=== PATIENT | female | born 1990 | race Caucasian/White ===

== ENCOUNTER 2020-07-12 18:33 | Emergency (ER) | payer SELFPAY ==
[~2020-07-12] VITALS: Ht 165 cm; Wt 77.0 kg
[2020-07-12 18:46] VITALS: BP 132/85
--- NOTE | 2020-07-12 19:02 | ED GU-Female ---
General Chief Complaint: - Urinary Stated Complaint: ABD PAIN Nursing Triage Note: Patient reports brown vaginal discharge and lower abdominal pain and pain when she wipes for 3 days. Nursing Sepsis Screen: No Definite Risk Source: patient History of Present Illness Date Seen by Provider: Jul 12, 2020 Time Seen by Provider: 18:50 Initial Comments 30 y/o presents w c/o vaginal irritation and itching for a few days. denies abdominal or pelvic pain, denies vaginal DC. No dysuria or hematuria Allergies and Home Medications Patient Home Medication List Home Medication List Reviewed: Yes Review of Systems Review of Systems Constitutional: no symptoms reported; No chills, No fever, No malaise, No weakness Genitourinary: see HPI, burning; denies discharge, denies dysuria, denies frequency, denies flank pain, denies hematuria; pain (genital area) Musculoskeletal: No back pain, No muscle pain Skin: change in color (redness genitals); No lesions, No lumps; pruritus; No rash Past Lrrjiqa-Zpufel-Qnjvpm Hx Past Med/Social Hx: Reviewed Nursing Past Med/Soc Hx Patient Social History Recent Foreign Travel: No Contact w/Someone Who Travel: No Recent Infectious Disease Expo: No Physical Exam Vital Signs Vital Signs - First Documented 07/12/20 18:46 Temp 36.8 Pulse 94 Resp 16 B/P (MAP) 132/85 (101) Pulse Ox 97 O2 Delivery Room Air Capillary Refill : Less Than 3 Seconds Height, Weight, BMI Height: '" Weight: lbs. oz. kg; 28.00 BMI Method: General Appearance: WD/WN, no apparent distress Gastrointestinal: non tender, soft, no organomegaly Genital/Rectal: No blood at urethral meatus; other (erythematous introitus and vaginal mucosa without discharge. Normal cervix w IUD string. No CMT) Progress/Results/Core Measures Suspected Sepsis Recent Fever Within 48 Hours: No Infection Criteria Present: Suspected New Infection New/Unexplained Altered Menta: No Sepsis Screen: No Definite Risk SIRS Temperature: Pulse: 94 Respiratory Rate: 16 Blood Pressure 132 /85 Mean: 101 Results/Orders Vital Signs/I&O 07/12/20 18:46 Temp 36.8 Pulse 94 Resp 16 B/P (MAP) 132/85 (101) Pulse Ox 97 O2 Delivery Room Air Capillary Refill : Less Than 3 Seconds Blood Pressure Mean: 101 Departure Impression Primary Impression: Vaginitis Qualified Codes: N76.0 - Acute vaginitis Disposition: 01 HOME, SELF-CARE Condition: Stable Departure-Patient Inst. Decision time for Depature: 19:01 Referrals: [facility]MICHAEL LOPEZ,LOCAL PHYSICIAN (PCP) Primary Care Physician Patient Instructions: Vaginitis Add. Discharge Instructions: Establish a PCP for follow up care in 1 week. Use an over the counter vaginal yeast cream for 7 days. You should get a call regarding your lab testing in a few days All discharge instructions reviewed with patient and/or family. Voiced understanding. HORACE DELATORRE DO Jul 12, 2020 19:02
== END 2020-07-12 19:08 | disposition home or self-care (01) ==
LOC: ER FS 18:34
DX: N76.0 Acute vaginitis (principal)
CPT/HCPCS: 36415; 87210; 87491; 87591; 99282

== ENCOUNTER 2021-06-12 06:12 | Emergency (ER) | payer SELFPAY ==
[~2021-06-12] VITALS: Ht 164 cm; Wt 56.9 kg
[2021-06-12] MEDS ORDERED: NS IV 1000 ML 1,000 ML IV STA (06:24)
[2021-06-12] MEDS ORDERED: KETOROLAC 30 MG/ML VIAL IVP STA (06:24)
[2021-06-12] MEDS ORDERED: ONDANSETRON 4 MG/2 ML (SDV) Z0FRAN IVP STA (06:33)
--- NOTE | 2021-06-12 06:39 | ED GU-Female ---
General Chief Complaint: - Reproductive Stated Complaint: LT FLANK PAIN Source: patient History of Present Illness Date Seen by Provider: Jun 12, 2021 Time Seen by Provider: 06:20 Initial Comments 31-year-old female presenting with complaints of left flank pain and stating that she has a UTI that went into her kidney and needs antibiotics. She reports that she is taken 3 doses of Bactrim since yesterday. She had some leftover antibiotics that she took to try and start treating infection. She felt like she had a UTI 3 to 4 days ago and now she has pain going into her kidney. She states that she has had this several times in the past and insists that it is infection that is going to her kidney. She insists that she just needs antibiotics and help with the pain. She has had sweating at home and nausea. She reports some emesis. She has pain all on the left flank. She denies any vaginal discharge or bleeding. She states she has an IUD in place for control. She follows with nurse practitioner Luly through the [facility]. Timing/Duration: getting worse (over the last 3-4 days) Severity/Quality: severe, burning, sharp Location: left flank Radiation: left flank Prior Genitourinary Problems: similar symptoms Sexual [place] History: less than 2 months ago, single partner Associated Symptoms: abdominal pain (left flank pain), diaphoresis, dysuria, fever/chills (subjective), lower back pain (left flank), nausea/vomiting; No swelling, No syncope; urinary frequency Allergies and Home Medications Allergies Coded Allergies: Penicillins (Verified Allergy, Unknown, 06/12/21) clarithromycin (Verified Allergy, Unknown, 06/12/21) Patient Home Medication List Home Medication List Reviewed: Yes Oxycodone HCl/Acetaminophen (Oxycodone-Acetaminophen 5-325) 1 Each Tablet, 1 EACH PO Q4H PRN for PAIN-SEVERE (8-10) Prescribed by: FREDY TRAN on 06/12/21821 Sulfamethoxazole/Trimethoprim (Bactrim Ds Tablet) 1 Each Tablet, 1 EACH PO BID Prescribed by: FREDY TRAN on 06/12/21820 Tamsulosin HCl (Flomax) 0.4 Mg Cap, 0.4 MG PO DAILY Prescribed by: FREDY TRAN on 06/12/21820 Review of Systems Review of Systems Constitutional: chills, diaphoresis, fever EENTM: no symptoms reported Respiratory: no symptoms reported Cardiovascular: no symptoms reported Gastrointestinal: see HPI Genitourinary: see HPI; denies discharge Musculoskeletal: no symptoms reported Skin: no symptoms reported Psychiatric/Neurological: No Symptoms Reported Past Eijdimg-Nprckj-Rfnhvx Hx Seasonal Allergies Seasonal Allergies: No Past Medical History Surgery/Hospitalization HX: Recurrent UTI and Kidney infections Surgeries: No Respiratory: No Cardiac: No Neurological: No Genitourinary: No Gastrointestinal: No Musculoskeletal: No Endocrine: No HEENT: No Cancer: No Psychosocial: No Integumentary: No Physical Exam Vital Signs Vital Signs - First Documented 06/12/21 06:16 Temp 36.9 Pulse 60 Resp 16 B/P (MAP) 162/100 (120) Pulse Ox 100 O2 Delivery Room Air Capillary Refill : Height, Weight, BMI Height: '" Weight: lbs. oz. kg; 28.00 BMI Method: General Appearance: moderate distress, other (pt bent over holding her stomach and periodically moaning) HEENT: PERRL/EOMI, pharynx normal Neck: non-tender, full range of motion, supple, normal inspection Cardiovascular: normal peripheral pulses, tachycardia Respiratory: chest non-tender, lungs clear, normal breath sounds Gastrointestinal: normal bowel sounds, soft, no pulsatile mass; No guarding, No rebound; tenderness (left flank to LLQ) Rectal: deferred Back: CVA tenderness (L) Extremities: normal range of motion, non-tender, normal capillary refill Neurologic/Psychiatric: alert, oriented x 3 Skin: normal color, diaphoresis Progress/Results/Core Measures Suspected Sepsis SIRS Temperature: Pulse: Respiratory Rate: Laboratory Tests 06/12/21 06:33: White Blood Count 6.5 Blood Pressure / Mean: Laboratory Tests 06/12/21 06:33: Creatinine 1.02, Platelet Count 255, Total Bilirubin 0.3 Results/Orders Lab Results Laboratory Tests Test 06/12/21 06:25 06/12/21 06:33 Range/Units Urine Color ORANGE Urine Clarity TURBID Urine pH 6.5 5-9 Urine Specific [place] 1.020 1.016-1.022 Urine Protein 2+ H NEGATIVE Urine Glucose (UA) TRACE H NEGATIVE Urine Ketones TRACE H NEGATIVE Urine Nitrite POSITIVE H NEGATIVE Urine Bilirubin 1+ H NEGATIVE Urine Urobilinogen >=8.0 < = 1.0 MG/DL Urine Leukocyte Esterase TRACE H NEGATIVE Urine RBC (Auto) TRACE-I H NEGATIVE Urine RBC 0-2 /HPF Urine WBC 0-2 /HPF Urine Squamous Epithelial Cells 10-25 H /HPF Urine Crystals PRESENT H /LPF Urine Amorphous Sediment MOD MARILYN PHOSPHATE H /LPF Urine Bacteria MODERATE H /HPF Urine Casts NONE /LPF Urine Mucus MODERATE H /LPF Urine Other PYRIDIUM TREATMENT /HPF Urine Culture Indicated YES Urine Opiates Screen NEGATIVE NEGATIVE Urine Oxycodone Screen NEGATIVE NEGATIVE Urine Methadone Screen NEGATIVE NEGATIVE Urine Propoxyphene Screen NEGATIVE NEGATIVE Urine Barbiturates Screen NEGATIVE NEGATIVE Ur Tricyclic Antidepressants Screen NEGATIVE NEGATIVE Urine Phencyclidine Screen NEGATIVE NEGATIVE Urine Amphetamines Screen POSITIVE H NEGATIVE Urine Methamphetamines Screen POSITIVE H NEGATIVE Urine Benzodiazepines Screen NEGATIVE NEGATIVE Urine Cocaine Screen NEGATIVE NEGATIVE Urine Cannabinoids Screen POSITIVE H NEGATIVE White Blood Count 6.5 4.3-11.0 10^3/uL Red Blood Count 5.21 H 3.80-5.11 10^6/uL Hemoglobin 13.6 11.5-16.0 g/dL Hematocrit 43 35-52 % Mean Corpuscular Volume 82 80-99 fL Mean Corpuscular Hemoglobin 26 25-34 pg Mean Corpuscular Hemoglobin Concent 32 32-36 g/dL Red Cell Distribution Width 13.3 10.0-14.5 % Platelet Count 255 130-400 10^3/uL Mean Platelet Volume 10.3 9.0-12.2 fL Immature Granulocyte % (Auto) 0 % Neutrophils (%) (Auto) 53 42-75 % Lymphocytes (%) (Auto) 33 12-44 % Monocytes (%) (Auto) 8 0-12 % Eosinophils (%) (Auto) 5 0-10 % Basophils (%) (Auto) 0 0-10 % Neutrophils # (Auto) 3.5 1.8-7.8 X 10^3 Lymphocytes # (Auto) 2.2 1.0-4.0 X 10^3 Monocytes # (Auto) 0.5 0.0-1.0 X 10^3 Eosinophils # (Auto) 0.3 0.0-0.3 10^3/uL Basophils # (Auto) 0.0 0.0-0.1 10^3/uL Immature Granulocyte # (Auto) 0.0 0.0-0.1 10^3/uL Sodium Level 138 135-145 MMOL/L Potassium Level 4.1 3.6-5.0 MMOL/L Chloride Level 103 98-107 MMOL/L Carbon Dioxide Level 25 21-32 MMOL/L Anion Gap 10 5-14 MMOL/L Blood Urea Nitrogen 14 7-18 MG/DL Creatinine 1.02 0.60-1.30 MG/DL Estimat Glomerular Filtration Rate 64 BUN/Creatinine Ratio 14 Glucose Level 157 H 70-105 MG/DL Calcium Level 9.0 8.5-10.1 MG/DL Corrected Calcium 8.7 8.5-10.1 MG/DL Total Bilirubin 0.3 0.1-1.0 MG/DL Aspartate Amino Transf (AST/SGOT) 21 5-34 U/L Alanine Aminotransferase (ALT/SGPT) 20 0-55 U/L Alkaline Phosphatase 93 40-136 U/L Total Protein 6.9 6.4-8.2 GM/DL Albumin 4.4 3.2-4.5 GM/DL Lipase 27 8-78 U/L My Orders Orders - FREDY TRAN MD Ua Culture If Indicated (06/12/21 06:23) Drug Screen Stat (Urine) (06/12/21 06:23) Urine Bedside (06/12/21 06:23) Comprehensive Metabolic Panel (06/12/21 06:24) Lipase (06/12/21 06:24) Ed Iv/Invasive Line Start (06/12/21 06:24) Cbc With Automated Diff (06/12/21 06:24) Ns Iv 1000 Ml (Sodium Chloride 0.9%) (06/12/21 06:24) Ketorolac Injection (Toradol Injection) (06/12/21 06:24) Ondansetron Injection (Zofran Injectio (06/12/21 06:33) Fentanyl Inj (Sublimaze Injection) (06/12/21 06:46) Ct Abdomen/Pelvis Wo (06/12/21 07:05) Urine Culture (06/12/21 06:25) Tamsulosin Capsule (Flomax Capsule) (06/12/21 08:08) Fentanyl Inj (Sublimaze Injection) (06/12/21 08:08) Ceftriaxone (Rocephin) (06/12/21 08:08) Strain Urine (06/12/21 08:08) Vital Signs/I&O 06/12/21 06/12/21 06:16 08:38 Temp 36.9 Pulse 60 77 Resp 16 19 B/P (MAP) 162/100 (120) 119/64 Pulse Ox 100 98 O2 Delivery Room Air Room Air Capillary Refill : Progress Note #1: Progress Note Pt states repeatedly that she has a kidney infection and that she just needs an antibiotic. When reviewing plan to obtain labs in addition to urine and that I would like to perform a CT scan for her complaint of severe pain, she refused the CT scan. She was insisting that she just needs antibiotics because she knows what it is. She has taken 3 doses of left over Bactrim DS she had at home from prior infections that she did not finish the course of medicine. She was willing to get blood drawn and do IV for fluids, pain meds and nausea meds. Order IVF 1 L NS, Zofran 4 mg IV for nausea, Toradol 30 mg IV for pain. Pt denies hx of kidney stones and again insists this is kidney infection and that she does not need CT or imaging. If pain not improving then may need Fentanyl or narcotic for pain control. Differential diagnosis includes pyelonephritis, UTI, kidney stones, diverticulitis, ovarian cyst Progress Note #2: Time: 06:46 Progress Note Significant other stepped out of the room and states she was still in severe pain and was wanting something different for pain as the Toradol was not helping. Will give Fentanyl 50 mcg IV. Progress Note #3: Progress Note Labs show no elevation of WBC count. UA with signs of infection and azo complicating test results. CT scan does show 3.8 mm kidney stone at Left UVJ. Will review results and see if can do antibiotics and treat pain. Progress Note #4: Time: 07:54 Progress Note Reviewed results with patient and that she has slight findings for UTI but primarily she has pain and issues with kidney stone 3.8 mm at left UVJ. Pain down to 5 or 6 out of 10 with treatment in ED. Will give Rocephin 1 gm IV as she reports she can tolerate cephalosporins and does not think she really is allergic to pcn. She was a child and got dry mouth with pcn so family would not allow her to take it. Flomax for dilating and relaxing ureter. Continue Bactrim DS at discharge since she has had that already with 3 doses tours captain. She states she has severe itching with hydrocodone but was willing to take Oxycodone or percocet for pain. Counseled on follow up and return precautions. Give info for Dr. Harley with urology if not improving Diagnostic Imaging Diagonstic Imaging: CT Plain Films/CT/US/NM/MRI: abdomen, pelvis Comments NAME: JN [facility] REC#: [id number] PT STATUS: REG ER : 1990 PHYSICIAN: FREDY TRAN MD ADMIT DATE: 06/12/21/ER FS Draft Date of Exam:06/12/21 CT ABDOMEN/PELVIS WO PROCEDURE: CT abdomen and pelvis without contrast. TECHNIQUE: Multiple contiguous axial images were obtained through the abdomen and pelvis without the use of intravenous contrast. Auto Exposure Controls were utilized during the CT exam to meet ALARA standards for radiation dose reduction. INDICATION: Left flank pain There are no prior studies available for comparison. There is no evidence for nephrolithiasis. However the left ureter and left renal pelvis do seem dilated and the images through the low pelvis revealed there is a small 3.8 mm calculus near the ureterovesical junction on the left. I suspect that this calculus is producing partial obstruction of the left collecting system. The appendix was not well-visualized but there are no indirect signs of acute appendicitis. There is no pelvic mass or free fluid collection noted. There is an IUD within the uterus and the IUD seems to be in good position. The liver, spleen, pancreas, adrenals, gallbladder, aorta and inferior vena cava are unremarkable for an acute abnormality. The stomach is filled with fluid of particulate matter and perhaps some ingested medication. The lung bases are clear. The bone windows show no evidence for a fracture or for a destructive lesion. IMPRESSION: 1. There is partial obstruction of the left collecting system due to a 3.8 mm calculus at the ureterovesical junction. 2. There is no acute abnormality of the abdomen or pelvis noted otherwise. 3. There is an IUD within the uterus and the IUD seems to be in good position. Dictated on workstation # [id number] Dict: 06/12/21 0736 Trans: 06/12/21 0743 [facility] [id number] Interpreted by: DANYA LÓPEZ MD Electronically signed by: Reviewed: Reviewed by Me Departure Impression Primary Impression: Renal colic on left side Additional Impressions: Left flank pain Acute cystitis without hematuria Methamphetamine abuse Disposition: 01 HOME, SELF-CARE Condition: Stable Departure-Patient Inst. Decision time for Depature: 08:14 Referrals: NO,LOCAL PHYSICIAN (PCP) Primary Care Physician VIKRAM HARLEY MD [facility] [place] Instructions: Flank Pain ED, How to Strain Your Urine, Kidney Stone Diet, Kidney Stone, Adult ED, Methamphetamine, Urinary Tract Infection, Adult ED Add. Discharge Instructions: Stay well hydrated and drink plenty of water and electrolyte drinks. Avoid carbonated drinks or caffeinated drinks as they can dehydrate you and contribute to infection and kidney stones. Take the full course of antibiotics to treat for UTI. Use the Flomax (Tamsulosin) to help the ureter relax and allow the kidney stone to pass easier. Use the Oxycodone/Acetaminophen (Percocet) for severe pain. If not improving you could check with Dr. Harley with Urology at [place] If having worsening pain despite medicine, uncontrolled vomiting, fever over 101 F then you could return to be seen again and evaluated for worsening infection related to stone and possible admission if uncontrolled pain and symptoms. All discharge instructions reviewed with patient and/or family. Voiced understanding. Scripts Ondansetron (Ondansetron Odt) 4 Mg Tab.rapdis 4 MG PO Q6H PRN for NAUSEA/VOMITING for 4 Days, #16 TAB 0 Refills Prov: FREDY TRAN MD 06/12/21 Sulfamethoxazole/Trimethoprim (Bactrim Ds Tablet) 1 Each Tablet 1 EACH PO BID for UTI/Kidney stone for 7 Days, #14 TAB 0 Refills Prov: FREDY TRAN MD 06/12/21 Oxycodone HCl/Acetaminophen (Oxycodone-Acetaminophen 5-325) 1 Each Tablet 1 EACH PO Q4H PRN for PAIN-SEVERE (8-10) MDD 6 for 3 Days, #15 TAB 0 Refills Prov: FREDY TRAN MD 06/12/21 Tamsulosin HCl (Flomax) 0.4 Mg Cap 0.4 MG PO DAILY for Renal Colic for 5 Days, #5 CAP 0 Refills Prov: FREDY TRAN MD 06/12/21 FREDY TRAN MD Jun 12, 2021 06:39
[2021-06-12 06:40] LABS: GLUCOSE, URINE (UA) TRACE (NEGATIVE); KETONES,URINE TRACE (NEGATIVE); LEUKOCYTE ESTERASE ,URINE TRACE (NEGATIVE); NITRITE,URINE POSITIVE (NEGATIVE); PH,URINE 6.5 (5-9); PROTEIN,URINE 2+ (NEGATIVE)
[2021-06-12] MEDS ORDERED: fentaNYL INJ 100 MCG/2 ML AMP IVP STA ×2 (06:46→08:08)
[2021-06-12 07:03] LABS: BASOPHILS % (AUTO) 0 % (0-10); EOSINOPHILS % (AUTO) 5 % (0-10); HEMATOCRIT 43 % (35-52); HEMOGLOBIN 13.6 g/dL (11.5-16.0); LYMPHOCYTES % (AUTO) 33 % (12-44); MEAN CORPUSCULAR HEMOGLOBIN 26 pg (25-34); MEAN CORPUSCULAR HGB CONC 32 g/dL (32-36); MEAN CORPUSCULAR VOLUME 82 fL (80-99); MEAN PLATELET VOLUME 10.3 fL (9.0-12.2); MONOCYTES % (AUTO) 8 % (0-12); NEUTROPHILS % (AUTO) 53 % (42-75); PLATELET COUNT 255 10^3/uL (130-400); WHITE BLOOD COUNT 6.5 10^3/uL (4.3-11.0)
[2021-06-12 07:04] LABS: EOSINOPHILS # (AUTO) 0.3 10^3/uL (0.0-0.3); LYMPHOCYTES # (AUTO) 2.2 X 10^3 (1.0-4.0); MONOCYTES # (AUTO) 0.5 X 10^3 (0.0-1.0); NEUTROPHILS # (AUTO) 3.5 X 10^3 (1.8-7.8)
[2021-06-12 07:05] LABS: AMORPHOUS SEDIMENT,UR MOD AMOR PHOSPHATE /LPF; BACTERIA,URINE MODERATE /HPF; RBC,URINE 0-2 /HPF; WBC,URINE 0-2 /HPF
[2021-06-12 07:06] LABS: CLARITY,URINE TURBID; COLOR,URINE ORANGE
[2021-06-12 07:07] LABS: URINE OTHER PYRIDIUM TREATMENT /HPF
[2021-06-12 07:11] LABS: BILIRUBIN,URINE 1+ (NEGATIVE)
[2021-06-12 07:12] LABS: AMPHETAMINE SCREEN, URINE POSITIVE (NEGATIVE); BARBITURATE SCREEN URINE NEGATIVE (NEGATIVE); BENZODIAZEPINES SCREEN URINE NEGATIVE (NEGATIVE); CANNABINOID SCREEN, URINE POSITIVE (NEGATIVE); COCAINE SCREEN URINE NEGATIVE (NEGATIVE); METHADONE STAT NEGATIVE (NEGATIVE); METHAMPHETAMINE SCREEN URINE S POSITIVE (NEGATIVE); OPIATE SCREEN URINE NEGATIVE (NEGATIVE); OXYCODONE STAT NEGATIVE (NEGATIVE); PROPOXYPHENE STAT NEGATIVE (NEGATIVE); TRICYCLIC ANTIDEPRESSANTS SCRE NEGATIVE (NEGATIVE)
[2021-06-12 07:16] LABS: CREATININE SERUM 1.02 MG/DL (0.60-1.30); POTASSIUM 4.1 MMOL/L (3.6-5.0)
[2021-06-12 07:17] LABS: ALBUMIN 4.4 GM/DL (3.2-4.5); BILIRUBIN,TOTAL 0.3 MG/DL (0.1-1.0); TOTAL PROTEIN 6.9 GM/DL (6.4-8.2)
--- NOTE | 2021-06-12 07:44 | Diagnostic Imaging Report ---
PROCEDURE: CT abdomen and pelvis without contrast. TECHNIQUE: Multiple contiguous axial images were obtained through the abdomen and pelvis without the use of intravenous contrast. Auto Exposure Controls were utilized during the CT exam to meet ALARA standards for radiation dose reduction. INDICATION: Left flank pain There are no prior studies available for comparison. There is no evidence for nephrolithiasis. However the left ureter and left renal pelvis do seem dilated and the images through the low pelvis revealed there is a small 3.8 mm calculus near the ureterovesical junction on the left. I suspect that this calculus is producing partial obstruction of the left collecting system. The appendix was not well-visualized but there are no indirect signs of acute appendicitis. There is no pelvic mass or free fluid collection noted. There is an IUD within the uterus and the IUD seems to be in good position. The liver, spleen, pancreas, adrenals, gallbladder, aorta and inferior vena cava are unremarkable for an acute abnormality. The stomach is filled with fluid of particulate matter and perhaps some ingested medication. The lung bases are clear. The bone windows show no evidence for a fracture or for a destructive lesion. IMPRESSION: 1. There is partial obstruction of the left collecting system due to a 3.8 mm calculus at the ureterovesical junction. 2. There is no acute abnormality of the abdomen or pelvis noted otherwise. 3. There is an IUD within the uterus and the IUD seems to be in good position. Dictated by: Dictated on workstation # [id number]
[2021-06-12] MEDS ORDERED: TAMSULOSIN 0.4 MG (FLOMAX) CAP PO STA (08:08)
[2021-06-12] MEDS ORDERED: cefTRIAXone 1,000 MG in WATER (STERILE) FOR INJECTION 10 ML IV STA (08:08)
[2021-06-12] MEDS ORDERED: OXYC1TAB11 PO (08:21)
[2021-06-12] MEDS ORDERED: TMSL.4C PO (08:21)
[2021-06-12] MEDS ORDERED: SULF1TAB38 PO (08:21)
[2021-06-12 08:38] VITALS: BP 119/64
[2021-06-12] MEDS ORDERED: ONDA4TAB11 PO (08:46)
== END 2021-06-12 08:38 | disposition home or self-care (01) ==
LOC: EDUNIT# 06:12 → ER FS 06:14
DX: N23 Unspecified renal colic (principal); N30.00 Acute cystitis without hematuria; F15.10 Other stimulant abuse, uncomplicated
CPT/HCPCS: 36415; 74176; 80053; 80306; 81000; 83690; 84703; 85025; 87088

== ENCOUNTER 2022-04-07 19:13 | Emergency (ER) | payer SELFPAY ==
[~2022-04-07] VITALS: Ht 165.1 cm; Wt 57.5 kg
[~2022-04-07 19:13] MED LIST: ONDA4TAB11 PO; OXYC1TAB11 PO; SULF1TAB38 PO; TMSL.4C PO
[2022-04-07 19:15] VITALS: BP 148/90
--- NOTE | 2022-04-07 19:50 | ED General ---
General Chief Complaint: Facial Problems Stated Complaint: L SIDE FACIAL NUMBNESS Nursing Triage Note: Pt states that she has been having left facial/head itching, tingling and pressure for the last 10 days. Denies injury, but her left pupil is larger than her right pupil and she is having a little bit of blurred vision in her left eye. The numbness and tingling in her face are from the jaw line up and only on the left side of her face. She also has a small swollen area below her left eye. Denies injury, fall or medication changes. Does admit to smoking marijuana routinely and has been under an increased amount of stress lately. Source of Information: Patient Exam Limitations: No Limitations History of Present Illness Date Seen by Provider: Apr 07, 2022 Time Seen by Provider: 19:15 Initial Comments Patient is a 32-year-old female presents with left facial paresthesias for the past 10 days. Patient reports left facial itching, tingling and fullness in her left ear for the past 10 days. She reports rash on left corner of the mouth. History of chickenpox. No history of shingles. Denies ocular pain. Denies change in vision, extremity weakness or loss sensation. No headache. No other acute symptoms or complaints. Timing/Duration: 1-3 Hours, Intermittent Severity: Mild Modifying Factors: improves with Other Associated Systoms: Other Allergies and Home Medications Allergies Coded Allergies: Penicillins (Verified Allergy, Unknown, 06/12/21) clarithromycin (Verified Allergy, Unknown, 06/12/21) Patient Home Medication List Home Medication List Reviewed: No Ondansetron (Ondansetron Odt) 4 Mg Tab.rapdis, 4 MG PO Q6H PRN for NAUSEA/VOMITING Prescribed by: FREDY TRAN on 06/12/21 0846 Oxycodone HCl/Acetaminophen (Oxycodone-Acetaminophen 5-325) 1 Each Tablet, 1 EACH PO Q4H PRN for PAIN-SEVERE (8-10) Prescribed by: FREDY TRAN on 06/12/21 0822 Sulfamethoxazole/Trimethoprim (Bactrim Ds Tablet) 1 Each Tablet, 1 EACH PO BID Prescribed by: FREDY TRAN on 06/12/21 0821 Tamsulosin HCl (Flomax) 0.4 Mg Cap, 0.4 MG PO DAILY Prescribed by: FREDY TRAN on 06/12/21 0821 Review of Systems Review of Systems Constitutional: see HPI EENTM: see HPI Respiratory: see HPI Cardiovascular: see HPI Gastrointestinal: see HPI Genitourinary: see HPI Musculoskeletal: see HPI Skin: see HPI Psychiatric/Neurological: See HPI Hematologic/Lymphatic: See HPI Immunological/Allergic: see HPI All Other Systems Reviewed Negative Unless Noted: No Past Krztqni-Ahcffl-Numpxu Hx Patient Social History Tobacco Use?: No Use of E-Cig and/or Vaping dev: No Substance use?: Yes Substance type: Marijuana Substance frequency: Couple times a week Alcohol Use?: Yes Alcohol type: Beer Alcohol Frequency: Couple times a week Pt feels they are or have been: No Seasonal Allergies Seasonal Allergies: No Past Medical History Surgery/Hospitalization HX: Recurrent UTI and Kidney infections Surgeries: No Respiratory: No Cardiac: No Neurological: No Genitourinary: No Gastrointestinal: No Musculoskeletal: No Endocrine: No HEENT: No Cancer: No Psychosocial: No Integumentary: No Physical Exam Vital Signs Vital Signs - First Documented 04/07/22 19:15 Temp 36.7 Pulse 88 Resp 17 B/P (MAP) 148/90 (109) Pulse Ox 100 O2 Delivery Room Air Capillary Refill : Less Than 3 Seconds Height, Weight, BMI Height: '" Weight: lbs. oz. kg; 21.00 BMI Method: General Appearance: No Apparent Distress, WD/WN Eyes: Bilateral Eye Normal Inspection, Bilateral Eye PERRL, Bilateral Eye EOMI HEENT: PERRL/EOMI, TMs Normal, Normal ENT Inspection Neck: Normal Inspection, Non Tender, Supple Respiratory: Chest Non Tender, Lungs Clear Cardiovascular: Regular Rate, Rhythm, No Edema Neurologic/Psychiatric: Alert, Oriented x3, No Motor/Sensory Deficits Focused Exam Sepsis Stage: Ruled Out Progress/Results/Core Measures Suspected Sepsis SIRS Temperature: Pulse: 88 Respiratory Rate: 17 Blood Pressure 148 /90 Mean: 109 Results/Orders Vital Signs/I&O 04/07/22 19:15 Temp 36.7 Pulse 88 Resp 17 B/P (MAP) 148/90 (109) Pulse Ox 100 O2 Delivery Room Air Capillary Refill : Less Than 3 Seconds Blood Pressure Mean: 109 Departure Communication (Admissions) Patient with nondescript facial pain/paresthesias with sporadic macules consistent with incomplete manifestation of shingles. Will place on Valtrex and have follow-up with PCP in the next 1 to 2 days for reevaluation and further management Impression Primary Impression: Left facial numbness Additional Impression: Facial rash Disposition: 01 HOME, SELF-CARE Condition: Critical Departure-Patient Inst. Decision time for Depature: 19:49 Referrals: MINERVA HICKS APRN (PCP/Family) Primary Care Physician Patient Instructions: Paresthesia (DC) Add. Discharge Instructions: You were evaluated in the emergency department for left facial numbness and rash. The cause of your symptoms has not been determined. Please take newly prescribed medication as directed and follow-up with your PCP for reevaluation in the next 1 to 2 days. Return to the ED if new or worsening symptoms. All discharge instructions reviewed with patient and/or family. Voiced understanding. JESSY PEREIRA DO Apr 07, 2022 19:50
[2022-04-07] MEDS ORDERED: VALA10004 PO (19:53)
== END 2022-04-07 19:56 | disposition home or self-care (01) ==
LOC: EDUNIT# 19:13 → ER FS 19:15
DX: R20.0 Anesthesia of skin (principal); R21 Rash and other nonspecific skin eruption; Z28.310 Unvaccinated for COVID-19
CPT/HCPCS: 99282

== ENCOUNTER 2022-06-20 13:42 | Emergency (ER) | payer SELFPAY ==
[~2022-06-20] VITALS: Ht 165 cm; Wt 68.0 kg
[~2022-06-20 13:42] MED LIST changes: +VALA10004 PO
[2022-06-20 15:24] LABS: CLARITY,URINE CLEAR; COLOR,URINE YELLOW; GLUCOSE, URINE (UA) NEGATIVE (NEGATIVE); KETONES,URINE 1+ (NEGATIVE); LEUKOCYTE ESTERASE ,URINE NEGATIVE (NEGATIVE); NITRITE,URINE NEGATIVE (NEGATIVE); PROTEIN,URINE TRACE (NEGATIVE)
[2022-06-20 15:31] LABS: BACTERIA,URINE FEW /HPF; SQUAMOUS EPITHELIAL CELL,UR 0-2 /HPF
[2022-06-20 15:32] LABS: BILIRUBIN,URINE 1+ (NEGATIVE)
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
[2022-06-20] MEDS ORDERED: VISCOUS LIDOCAINE PO (16:08)
[2022-06-20 16:15] VITALS: BP 144/103
== END 2022-06-20 16:15 | disposition home or self-care (01) ==
LOC: EDUNIT# 13:42 → ER 13:44
DX: K05.10 Chronic gingivitis, plaque induced (principal); R31.9 Hematuria, unspecified; F17.210 Nicotine dependence, cigarettes, uncomplicated; Z87.440 Personal history of urinary (tract) infections; Z28.310 Unvaccinated for COVID-19
CPT/HCPCS: 81000; 87077; 87088; 99282